=== PATIENT | female | born 1990 | race Caucasian/White ===

== ENCOUNTER 2020-05-17 17:39 | Emergency (ER) | payer OTHER ==
[~2020-05-17] VITALS: Ht 172.7 cm; Wt 54.4 kg
[2020-05-17 18:13] VITALS: BP 126/83
--- NOTE | 2020-05-17 18:24 | NUR ---
SEEN AND EXAMINED BY SEAN CARTER
--- NOTE | 2020-05-17 18:30 | NUR ---
TECH AT BEDSIDE FOR DUPLEX SCAN.
[2020-05-17] MEDS ORDERED: APIX5TAB PO (20:05)
== END 2020-05-17 20:17 | disposition home or self-care (01) ==
LOC: ER 17:45
DX: I82.621 Acute embolism and thrombosis of deep veins of right upper extremity (principal)
CPT/HCPCS: 71045-TC; 93971-TC

== ENCOUNTER 2020-08-05 21:21 | Emergency (ER) | payer OTHER ==
[~2020-08-05] VITALS: Ht 172.7 cm; Wt 54.4 kg
[~2020-08-05 21:21] MED LIST: APIX5TAB PO
--- NOTE | 2020-08-05 21:26 | NUR ---
PT BIBSELF C/O RT ARM PAIN. PT [id number] BREATHING EVENLY AND UNLABORED. PT STATES "SHE HAS HX OF DVT AND ON ELIQUIS, WANTS TO MAKE SURE SHE DOESNT HAVE DVT". PT ATTACHED TO MONITOR AND POX. PT GIVEN BLANKET AND CALL LIGHT WITHIN REACH.
--- NOTE | 2020-08-05 22:21 | NUR ---
US AT BEDSIDE
--- NOTE | 2020-08-05 23:07 | NUR ---
Patient discharged to home in stable condition. Written and verbal after care instructions given. Patient verbalizes understanding of instruction. Pt ambulatory with a steady gait
[2020-08-05 23:12] VITALS: BP 115/77
== END 2020-08-05 23:07 | disposition home or self-care (01) ==
LOC: ER 21:21
DX: M77.8 Other enthesopathies, not elsewhere classified (principal); Z86.73 Personal history of transient ischemic attack (TIA), and cerebral infarction without residual deficits; Z79.899 Other long term (current) drug therapy
CPT/HCPCS: 93971-TC